=== PATIENT | female | born 1960 | race Caucasian/White ===

== ENCOUNTER 2016-05-22 02:18 | Emergency (ER) | payer BC ==
[~2016-05-22] VITALS: Ht 149.9 cm; Wt 55.0 kg
[~2016-05-22 02:18] MED LIST: ALAWAY10 ML LEFT EYE; AZITHROMYCIN250 MG1 PO; BACITRACIN3.5 GM LEFT EYE; BACTRIM,SEPT1 TABLET PO; BENADRYL25 MG PO; DESONIDE60 GM TP; NAPROSYN500 MG PO; PERCOCET 5/31 TABLET PO; PRED FORTE100 DROP/5 LEFT EYE; PREDNISONE10 M1 PO; VICODIN 5-3001 EACH PO; ZOFRAN ODT8 MG PO
[2016-05-22] MEDS ORDERED: NAPROSYN500 MG PO (03:48)
[2016-05-22 04:07] VITALS: BP 104/86
== END 2016-05-22 04:25 | disposition home or self-care (01) ==
LOC: EME 02:18
PROC: 0HQ1XZZ Repair Face Skin, External Approach (ICD-10-PCS; principal; 2016-05-22)
DX: S01.511A Laceration without foreign body of lip, initial encounter (principal); S00.03XA Contusion of scalp, initial encounter; R07.81 Pleurodynia; W00.1XXA Fall from stairs and steps due to ice and snow, initial encounter; F17.200 Nicotine dependence, unspecified, uncomplicated; Z88.0 Allergy status to penicillin; Z88.1 Allergy status to other antibiotic agents
CPT/HCPCS: 70450; 71101; 99281; 99284

== ENCOUNTER 2016-11-22 07:38 | Emergency (ER) | payer BC ==
[~2016-11-22] VITALS: Ht 149.9 cm; Wt 55.0 kg
[2016-11-22] MEDS ORDERED: PATADAY2.5 ML RIGHT EYE (08:52)
[2016-11-22] MEDS ORDERED: MUCUS ER600 MG PO (08:52)
[2016-11-22] MEDS ORDERED: FLONASE16 G1 BOTH NARES (08:52)
[2016-11-22] MEDS ORDERED: CLARITIN10 M3 PO (08:52)
[2016-11-22 09:56] VITALS: BP 115/78
== END 2016-11-22 09:58 | disposition home or self-care (01) ==
LOC: EME 07:38
DX: H10.11 Acute atopic conjunctivitis, right eye (principal); J30.9 Allergic rhinitis, unspecified; H73.893 Other specified disorders of tympanic membrane, bilateral; Z86.19 Personal history of other infectious and parasitic diseases; F17.200 Nicotine dependence, unspecified, uncomplicated; Z71.6 Tobacco abuse counseling; Z88.0 Allergy status to penicillin
CPT/HCPCS: 99281; 99283

== ENCOUNTER 2017-02-28 09:29 | Emergency (ER) | payer BC ==
[~2017-02-28] VITALS: Ht 149.9 cm; Wt 49.9 kg
[~2017-02-28 09:29] MED LIST changes: +CLARITIN10 M3 PO; +FLONASE16 G1 BOTH NARES; +MUCUS ER600 MG PO; +PATADAY2.5 ML RIGHT EYE
[2017-02-28 10:19] LABS: BASOPHIL COUNT 0.1 K/uL (0-0.1); EOSINOPHIL (%) 1.6 % (0-5); EOSINOPHIL COUNT 0.1 K/uL (0-0.3); HEMATOCRIT 44.7 % (36.0-46.0); IMMATURE GRANULOCYTE (%) 0.2 % (0.0-0.7); INSTRUMENT ABS NEUTROPHIL CT 2.6 K/uL; LYMPHOCYTE COUNT 2.4 K/uL (1.0-2.8); MCH 27.9 PG (29.0-34.0); MCHC 32.9 G/DL (30.0-36.0); MEAN PLAT.VOLUME 9.4 uM^3 (9.5-12.4); MONOCYTE (%) 7.7 % (3-12); MONOCYTE COUNT 0.4 K/uL (0-0.8); NEUTROPHIL (%) 47.1 % (45-76); NEUTROPHIL COUNT 2.6 K/uL (1.8-6.4); PLATELET COUNT 273 K/uL (156-360); RBC DIS.WIDTH-CV 13.2 % (11.8-14.6); RBC DIS.WIDTH-SD 40.6 % (39-53); RED BLOOD COUNT 5.26 M/uL (3.80-5.20); WHITE BLOOD COUNT 5.6 K/uL (4.1-10.2)
[2017-02-28 10:29] LABS: CHLORIDE 107 mEq/L (99-109); POTASSIUM 4.1 mEq/L (3.7-5.4); SODIUM 141 mEq/L (136-147)
[2017-02-28 10:31] LABS: GLUCOSE 98 mg/dL (70-99)
[2017-02-28 10:32] LABS: ANION GAP 11 MEQ/L (2-14)
[2017-02-28 10:33] LABS: TOTAL BILIRUBIN 0.2 mg/dL (0.0-1.0)
[2017-02-28 10:34] LABS: ALKALINE PHOSPHATASE 87 IU/L (3-129)
[2017-02-28 10:35] LABS: GFR ESTIMATE (CALCULATED) > 59 mL/min/
[2017-02-28 10:36] LABS: UREA NITROGEN (BUN) 13 mg/dL (9-23)
[2017-02-28 10:41] LABS: TROP-I INTERPRETATION NEGATIVE; TROPONIN-I < 0.01 ng/mL (0.0-0.30)
[2017-02-28 13:02] LABS: TROP-I INTERPRETATION NEGATIVE; TROPONIN-I < 0.01 ng/mL (0.0-0.30)
[2017-02-28 13:50] VITALS: BP 102/70
== END 2017-02-28 13:56 | disposition home or self-care (01) ==
LOC: EME 09:29
PROVIDERS: Emergency Medicine
DX: R07.89 Other chest pain (principal); I25.2 Old myocardial infarction; F32.9 Major depressive disorder, single episode, unspecified; F17.200 Nicotine dependence, unspecified, uncomplicated; Z88.0 Allergy status to penicillin
CPT/HCPCS: 71010; 80053; 84484; 85025; 93005; 99281; 99284

== ENCOUNTER 2017-11-13 21:25 | Emergency (ER) | payer SELFPAY ==
[~2017-11-13] VITALS: Ht 149.9 cm; Wt 58.0 kg
[2017-11-13] MEDS ORDERED: DESONIDE15 G1 TP (22:58)
[2017-11-13] MEDS ORDERED: BACTRIM,SEPT1 TABLET PO (22:58)
[2017-11-13] MEDS ORDERED: PRED FORTE100 DROP/5 RIGHT EYE (22:58)
[2017-11-13 23:27] VITALS: BP 120/98
== END 2017-11-13 23:28 | disposition home or self-care (01) ==
LOC: EME 21:25
DX: H10.11 Acute atopic conjunctivitis, right eye (principal); F32.9 Major depressive disorder, single episode, unspecified; I25.2 Old myocardial infarction; F17.200 Nicotine dependence, unspecified, uncomplicated; Z88.0 Allergy status to penicillin; Z88.1 Allergy status to other antibiotic agents
CPT/HCPCS: 99281; 99283